=== PATIENT | male | born 1975 | race Caucasian/White ===

== ENCOUNTER 2016-08-18 16:10 | Emergency (ER) | payer OTHER, SELFPAY | END 2016-08-18 16:34 | disposition home or self-care (01) | LOC: BURERS 16:10 | DX: S46.212A Strain of muscle, fascia and tendon of other parts of biceps, left arm, initial encounter (principal); S46.912A Strain of unspecified muscle, fascia and tendon at shoulder and upper arm level, left arm, initial encounter; J45.909 Unspecified asthma, uncomplicated; I25.10 Atherosclerotic heart disease of native coronary artery without angina pectoris; F17.210 Nicotine dependence, cigarettes, uncomplicated; X50.0XXA Overexertion from strenuous movement or load, initial encounter | CPT/HCPCS: 99283 ==

== ENCOUNTER 2017-07-01 05:31 | Emergency (ER) | payer OTHER ==
[2017-07-01] MEDS ORDERED: Ketorolac Tromethamine 60 MG/2 ML VIAL ONE (05:53)
[2017-07-01 05:59] LABS: #Basophils 0.1 thou/uL (0.0-0.2); #Eosinphils 0.1 thou/uL (0.0-0.7); #Lymphocytes 2.8 thou/uL (1.20-3.40); #Monocytes 0.3 thou/uL (0.11-0.59); #Neutrophils 3.7 thou/uL (1.40-6.50); %Basophils 0.9 % (0.0-1.0); %Eosinophils 2.1 % (0.0-10.0); %Lymphocytes 39.3 % (21.0-51.0); %Monocytes 4.9 % (0.0-10.0); %Neutrophils 52.8 % (42.0-75.0); Hemoglobin 15.3 g/dL (14.0-18.0); Mean Corpuscular HGB CONC 33.5 g/dL (32.0-36.0); Mean Corpuscular Hemoglobin 28.1 pg (27.0-31.0); Mean Corpuscular Volume 83.7 fl (80.0-94.0); Mean Platelet Volume 5.8 fL (7.4-10.4); Platelet Count 190 thou/uL (130-400); RBC Distribution Width 11.3 % (11.5-14.5); Red Blood Cell (RBC) Count 5.45 mill/uL (4.70-6.10)
[2017-07-01 06:15] LABS: ALT (SGPT) 8 U/L (8-55); AST (SGOT) 13 U/L (5-34); Albumin 4.3 g/dL (3.5-5.0); Alkaline Phosphatase 48 U/L (40-150); Anion Gap 15 mmol/L (10-20); BUN (Urea Nitrogen) 15 mg/dL (8.9-20.6); Bilirubin, Total 0.3 mg/dL (0.2-1.2); Calc. Creatinine Clearance 0 mL/min (70-130); Carbon Dioxide 24 mmol/L (22-29); Chloride 101 mmol/L (98-107); Estimated GFR-MDRD Greater than 90; Globulin 2.9 g/dL (2.4-3.5); Glucose 90 mg/dL (70-105); Protein, Total 7.2 g/dL (6.0-8.3); Sodium 136 mmol/L (136-145)
[2017-07-01 06:17] LABS: CKMB 1.7 ng/mL (0-6.6); Troponin I Less than 0.010 ng/mL (< 0.028)
[2017-07-01] MEDS ORDERED: Azithromycin 250 MG TAB ONE (06:20)
--- NOTE | 2017-07-01 15:21 | RAD ---
CHEST TWO VIEWS: Date: 07-01-17 Comparison: 04-06-10 FINDINGS: The patient is turned to the right slightly which makes the right hemithorax seem more lucent. In spi te of this, there is a little increase in markings in the left lung in general as well as areas of le ft apical pleural thickening and right apical scarring. All of these findings were present on the 201 0 study and are long standing. No new infiltrates or effusions were appreciated. The cardiac configur ation appears normal as does the mediastinum. IMPRESSION: Chronic parenchymal changes but no acute findings. POS: HOME
== END 2017-07-01 06:44 | disposition home or self-care (01) ==
LOC: BURERS 05:31
DX: J18.9 Pneumonia, unspecified organism (principal); F17.210 Nicotine dependence, cigarettes, uncomplicated; I25.10 Atherosclerotic heart disease of native coronary artery without angina pectoris; J45.909 Unspecified asthma, uncomplicated
CPT/HCPCS: 36415; 71046; 80053; 82553; 84484; 85025; 93005; 96372; J1885; J7620

== ENCOUNTER 2018-04-21 03:35 | Emergency (ER) | payer OTHER, SELFPAY ==
[2018-04-21] MEDS ORDERED: Ketorolac Tromethamine 30 MG/ML VIAL ONE (04:00)
== END 2018-04-21 04:05 | disposition home or self-care (01) ==
LOC: BURERS 03:35
DX: M54.5 Low back pain (principal); I25.10 Atherosclerotic heart disease of native coronary artery without angina pectoris; J45.909 Unspecified asthma, uncomplicated; F17.210 Nicotine dependence, cigarettes, uncomplicated; Z79.899 Other long term (current) drug therapy
CPT/HCPCS: 96372; J1885

== ENCOUNTER 2018-08-15 17:17 | Emergency (ER) | payer OTHER, SELFPAY | END 2018-08-15 17:35 | disposition home or self-care (01) | LOC: BURERS 17:17 | DX: R09.1 Pleurisy (principal); F17.210 Nicotine dependence, cigarettes, uncomplicated | CPT/HCPCS: 99283 ==

== ENCOUNTER 2021-01-21 10:27 | Emergency (ER) | payer SELFPAY | END 2021-01-21 11:03 | disposition home or self-care (01) | LOC: BURERS 10:27 | DX: M54.5 Low back pain (principal); R20.0 Anesthesia of skin; F17.210 Nicotine dependence, cigarettes, uncomplicated | CPT/HCPCS: 99281 ==